=== PATIENT | female | born 1985 | race Caucasian/White ===

== ENCOUNTER 2018-08-16 15:03 | Observation (INO) ==
[2018-08-16 17:14] LABS: Basophils % 0.1 % (0.0-0.8); Hematocrit 36.2 VOL% (35.7-47.0); Hemoglobin 11.5 GM/DL (12.0-16.0); Immature Granulocytes % 0.5 %; Immature Granulocytes Absolute 0.11 #; Lymphocytes % 9.8 % (21.3-54.2); Mean Corpuscular HGB Conc 31.8 GM/DL (32-36); Mean Corpuscular Hemoglobin 30 PG (27-34); Mean Corpuscular Volume 93.1 FL (87-102); Mean Platelet Volume 10.4 FL (9.6-12.0); Monocytes # 1.9 10*3/uL (0.11-0.8); Monocytes % 9.1 % (1.7-12.7); Neutrophils # 16.4 10*3/uL (1.4-7.4); Neutrophils % 80.5 % (38.7-73.9); Platelet Count 347 T/CUMM (130-400); Red Blood Count 3.89 MC/CUMM (3.8-5.5); Red Cell Distribution Width 11.9 % (9.3-17.3); White Blood Count 20.4 T/CUMM (4-12)
[2018-08-16 17:37] LABS: Lymphocytes 7 % (20-55); Platelet Estimate Normal; Segmented Neutrophils 86 % (50-85); Total Cells Counted 100
[2018-08-16 17:39] LABS: Hypochromasia 1+; Ovalocytes Few
[2018-08-16] MEDS: HYDROmorphone 2 MG/1 ML VIAL IV PRN (19:56)
[2018-08-16] MEDS: ONDANSETRON 4 MG/2 ML VIAL IV PRN (19:57)
[2018-08-16] MEDS ORDERED: LEVOFLOXACIN INJ 500 MG in PREMIX 1 EACH IV SCH (20:00)
[2018-08-16] MEDS: DEXTROSE 5% LACTATED RINGERS 1,000 ML IV SCH (20:02)
[2018-08-16] MEDS: cefOXitin 1,000 MG in SYRINGE 1 EACH IV SCH (22:32)
[2018-08-16] MEDS: DOXYCYCLINE HYCLATE INJ 100 MG in SODIUM CHLORIDE 0.9% 100 ML IV SCH (22:39)
[2018-08-17] MEDS: HYDROmorphone 2 MG/1 ML VIAL IV PRN ×2 (03:17→15:16)
[2018-08-17] MEDS: ONDANSETRON 4 MG/2 ML VIAL IV PRN (03:17)
[2018-08-17] MEDS: cefOXitin 1,000 MG in SYRINGE 1 EACH IV SCH ×4 (04:35→22:18)
[2018-08-17 04:47] LABS: Basophils % 0.1 % (0.0-0.8); Eosinophils % 0.1 % (0.00-10.9); Hematocrit 32.8 VOL% (35.7-47.0); Hemoglobin 10.4 GM/DL (12.0-16.0); Immature Granulocytes % 0.6 %; Lymphocytes % 12.4 % (21.3-54.2); Mean Corpuscular HGB Conc 31.7 GM/DL (32-36); Mean Corpuscular Hemoglobin 29 PG (27-34); Mean Corpuscular Volume 92.7 FL (87-102); Mean Platelet Volume 10.3 FL (9.6-12.0); Monocytes # 1.5 10*3/uL (0.11-0.8); Monocytes % 9.3 % (1.7-12.7); Neutrophils # 12.4 10*3/uL (1.4-7.4); Neutrophils % 77.5 % (38.7-73.9); Platelet Count 306 T/CUMM (130-400); Red Blood Count 3.54 MC/CUMM (3.8-5.5)
[2018-08-17] MEDS: DOXYCYCLINE HYCLATE INJ 100 MG in SODIUM CHLORIDE 0.9% 100 ML IV SCH ×2 (10:01→22:26)
[2018-08-17] MEDS: DEXTROSE 5% LACTATED RINGERS 1,000 ML IV SCH ×2 (10:01→22:26)
[2018-08-17] MEDS ORDERED: oxyCODONE/ACETAMINOPHEN 5-325 MG TABLET PO PRN ×2 (22:11)
[2018-08-18] MEDS: cefOXitin 1,000 MG in SYRINGE 1 EACH IV SCH (04:14)
[2018-08-18 06:17] LABS: Basophils % 0.3 % (0.0-0.8); Eosinophils # 0.1 10*3/uL (0.0-0.87); Eosinophils % 1.1 % (0.00-10.9); Hematocrit 33.9 VOL% (35.7-47.0); Hemoglobin 10.5 GM/DL (12.0-16.0); Immature Granulocytes % 0.5 %; Immature Granulocytes Absolute 0.06 #; Lymphocytes # 2.5 10*3/uL (1.4-4.0); Lymphocytes % 22.7 % (21.3-54.2); Mean Corpuscular Hemoglobin 29 PG (27-34); Mean Corpuscular Volume 94.4 FL (87-102); Monocytes # 1.3 10*3/uL (0.11-0.8); Monocytes % 11.4 % (1.7-12.7); Neutrophils # 7.2 10*3/uL (1.4-7.4); Platelet Count 297 T/CUMM (130-400); Red Blood Count 3.59 MC/CUMM (3.8-5.5); Red Cell Distribution Width 11.9 % (9.3-17.3); White Blood Count 11.2 T/CUMM (4-12)
[2018-08-18 07:24] VITALS: BP 111/76
[2018-08-18] MEDS: DEXTROSE 5% LACTATED RINGERS 1,000 ML IV SCH (07:40)
== END 2018-08-18 10:00 | disposition home or self-care (01) ==
LOC: N.EDINP 15:03 → N.ED 15:03 → N.OB 18:00
PROVIDERS: ADMIT Obstetrics & Gynecology; ATTEND Obstetrics & Gynecology

== ENCOUNTER 2021-03-28 00:55 | Inpatient (IN) ==
[2021-03-28] MEDS ORDERED: MEPERIDINE 50 MG/1 ML VIAL IV PRN (01:06)
[2021-03-28] MEDS ORDERED: ONDANSETRON 4 MG/2 ML VIAL IV PRN ×2 (01:06→21:59)
[2021-03-28] MEDS ORDERED: BUTORPHANOL 2 MG/ML VIAL IV PRN (01:06)
[2021-03-28] MEDS ORDERED: LACTATED RINGERS 1,000 ML IV SCH ×2 (01:30→22:00)
[2021-03-28 01:49] LABS: Alanine Aminotransferase 30 U/L (13-56); Albumin 2.7 G/DL (3.4-5.0); Alkaline Phosphatase 203 U/L (45-117); Aspartate Amino Transferase 20 U/L (0-37); Bilirubin,Total < 0.39 MG/DL (0.2-1.0); Blood Urea Nitrogen 7 MG/DL (7-18); Calcium 9.2 MG/DL (8.5-10.1); Carbon Dioxide 25 MMOL/L (21-32); Estimated Glom Filtration Rate 148 ML/MIN; Glucose 90 MG/DL (74-106); Sodium 136 MMOL/L (136-145); Total Protein 7.5 G/DL (6.4-8.2)
[2021-03-28 01:55] LABS: Basophils % 0.2 % (0.0-0.8); Eosinophils # 0.1 10*3/uL (0.0-0.87); Eosinophils % 0.7 % (0.00-10.9); Hematocrit 33.9 VOL% (35.7-47.0); Hemoglobin 11.6 GM/DL (12.0-16.0); Immature Granulocytes % 1.7 %; Lymphocytes # 2.6 10*3/uL (1.4-4.0); Lymphocytes % 21.5 % (21.3-54.2); Mean Corpuscular HGB Conc 34.2 GM/DL (32-36); Mean Corpuscular Volume 91.1 FL (87-102); Mean Platelet Volume 10.8 FL (9.6-12.0); Monocytes % 7.7 % (1.7-12.7); Neutrophils % 68.2 % (38.7-73.9); Platelet Count 370 T/CUMM (130-400); Red Blood Count 3.72 MC/CUMM (3.8-5.5); Red Cell Distribution Width 12.3 % (9.3-17.3)
[2021-03-28 04:13] LABS: INR 0.9; PT Patient Result 9.8 SECS (10.5-12.0); Partial Thromboplastin Time 25.7 SECS (23.9-33.8)
[2021-03-28] MEDS ORDERED: ACETAMINOPHEN 500 MG TABLET PO PRN (13:37)
[2021-03-28] MEDS ORDERED: FAMOTIDINE 20 MG/2 ML VIAL IV ONE (18:20)
[2021-03-28] MEDS ORDERED: CITRIC ACID/SODIUM CITRATE 30 ML UDCUP PO ONE (18:20)
[2021-03-28] MEDS ORDERED: hydrOXYzine HCL 25 MG/1 ML VIAL IM PRN (18:20)
[2021-03-28] MEDS ORDERED: ePHEDrine 50 MG/ML VIAL IV PRN (18:20)
[2021-03-28] MEDS ORDERED: PROMETHAZINE 25 MG/1 ML VIAL IM ONE (18:20)
[2021-03-28] MEDS ORDERED: ONDANSETRON 4 MG/2 ML VIAL IV ONE (18:20)
[2021-03-28] MEDS ORDERED: diphenhydrAMINE 50 MG/1 ML VIAL IV PRN ×2 (18:20)
[2021-03-28] MEDS ORDERED: OXYTOCIN/LR 20 UNIT/1,000 ML BAG IV ONE ×4 (18:39→23:10)
[2021-03-28] MEDS ORDERED: PHENYLEPHRINE 1 MG/10 ML SYRINGE IV ONE (18:48)
[2021-03-28] MEDS ORDERED: ONDANSETRON 4 MG/2 ML VIAL ONE (18:48)
[2021-03-28] MEDS ORDERED: BUPIVACAINE SPINAL 0.75% 2 ML AMP SPINAL ONE (18:51)
[2021-03-28] MEDS ORDERED: ceFAZolin 2,000 MG/50 ML DUPLEX IV ONE (19:09)
[2021-03-28] MEDS ORDERED: miSOPROStoL 200 MCG TABLET ONE (20:18)
[2021-03-28] MEDS ORDERED: CARBOPROST TROMETHAMINE 250 MCG/ML AMP IM ONE (20:19)
[2021-03-28] MEDS ORDERED: METHYLERGONOVINE 0.2 MG/1 ML AMP ONE (20:19)
[2021-03-28] MEDS ORDERED: TRANEXAMIC ACID 1,000 MG/10 ML VIAL ONE (20:19)
[2021-03-28] MEDS ORDERED: METHYLERGONOVINE 0.2 MG/1 ML AMP IM ONE (21:05)
[2021-03-28] MEDS ORDERED: ePHEDrine 50 MG/ML VIAL ONE (21:10)
[2021-03-28] MEDS ORDERED: ACETAMINOPHEN INJ 1,000 MG/100 ML VIAL IV ONE (21:25)
[2021-03-28] MEDS ORDERED: KETOROLAC 30 MG/1 ML VIAL ONE (21:26)
[2021-03-28 21:30] LABS: Cord Arterial Blood HCO3 16.2 MMOL/L
[2021-03-28 21:33] LABS: Cord Venous Blood HCO3 17.3 MMOL/L; Cord Venous Blood PCO2 82.5 MMHG; Cord Venous Blood PO2 < 17
[2021-03-28] MEDS ORDERED: RHO(D) IMMUNE GLOBULIN 300 MCG SYRINGE IM ONE (21:59)
[2021-03-28] MEDS ORDERED: ACETAMINOPHEN 325 MG TABLET PO PRN (21:59)
[2021-03-28] MEDS ORDERED: MAGNESIUM HYDROXIDE SUSP 30 ML UDCUP PO PRN (21:59)
[2021-03-28] MEDS ORDERED: SIMETHICONE CHEW 80 MG TABLET PO PRN (21:59)
[2021-03-29] MEDS ORDERED: LABETALOL 200 MG TABLET PO PRN (01:05)
[2021-03-29 01:20] LABS: Bacteria,Urine Occasional /HPF (Few); Bilirubin,Urine Negative (Negative); Blood, Urine Negative (Negative); Glucose,Urine (UA) Negative (Negative); Ketones,Urine Negative (Negative); Nitrite,Urine Negative (Negative); Protein,Urine Negative; RBC,Urine 1 /HPF (0-4); Squamous Epithelial Cell,Urine Occasional /HPF (0-10); Urine Appearance CLEAR (Clear); Urine Color Straw (Yellow); Urine Specific Gravity 1.004 (1.001-1.035); Urine Urobilinogen < 2.0 EU/DL (0.2-1.0)
[2021-03-29] MEDS: ACETAMINOPHEN 500 MG TABLET PO SCH ×2 (02:17→03:20)
[2021-03-29] MEDS: KETOROLAC 30 MG/1 ML VIAL IV SCH ×2 (03:20→09:52)
[2021-03-29 05:43] LABS: Basophils % 0.1 % (0.0-0.8); Eosinophils % 0.1 % (0.00-10.9); Hematocrit 29.9 VOL% (35.7-47.0); Hemoglobin 9.7 GM/DL (12.0-16.0); Immature Granulocytes % 0.6 %; Immature Granulocytes Absolute 0.11 #; Lymphocytes # 2.4 10*3/uL (1.4-4.0); Lymphocytes % 13.6 % (21.3-54.2); Mean Corpuscular HGB Conc 32.4 GM/DL (32-36); Mean Corpuscular Volume 93.4 FL (87-102); Mean Platelet Volume 11.1 FL (9.6-12.0); Monocytes % 6.9 % (1.7-12.7); Neutrophils % 78.7 % (38.7-73.9); Platelet Count 313 T/CUMM (130-400); Red Cell Distribution Width 12.3 % (9.3-17.3); White Blood Count 17.7 T/CUMM (4-12)
[2021-03-29] MEDS: DOCUSATE SODIUM 100 MG CAPSULE PO SCH ×2 (09:55→21:23)
[2021-03-29] MEDS: MULTIVITAMIN (PRENATAL) TABLET PO SCH (09:55)
[2021-03-29 12:19] LABS: Basophils % 0.1 % (0.0-0.8); Hemoglobin 9.3 GM/DL (12.0-16.0); Immature Granulocytes % 0.5 %; Immature Granulocytes Absolute 0.11 #; Lymphocytes # 1.1 10*3/uL (1.4-4.0); Lymphocytes % 5.6 % (21.3-54.2); Mean Corpuscular HGB Conc 33.2 GM/DL (32-36); Mean Corpuscular Volume 92.1 FL (87-102); Mean Platelet Volume 10.2 FL (9.6-12.0); Neutrophils % 89.8 % (38.7-73.9); Platelet Count 266 T/CUMM (130-400); Red Blood Count 3.04 MC/CUMM (3.8-5.5); Red Cell Distribution Width 12.7 % (9.3-17.3); White Blood Count 20.1 T/CUMM (4-12)
[2021-03-29 13:39] LABS: Lymphocytes 4 % (20-55); Segmented Neutrophils 91 % (50-85); Total Cells Counted 100
[2021-03-29 13:40] LABS: Platelet Estimate Normal; Polychromasia Slight
[2021-03-29] MEDS: IBUPROFEN 800 MG TABLET PO PRN (18:44)
[2021-03-29] MEDS: oxyCODONE/ACETAMINOPHEN 5-325 MG TABLET PO PRN (18:44)
[2021-03-30] MEDS: oxyCODONE/ACETAMINOPHEN 5-325 MG TABLET PO PRN (01:20)
[2021-03-30] MEDS: IBUPROFEN 800 MG TABLET PO PRN ×2 (01:21→09:16)
[2021-03-30] MEDS: DOCUSATE SODIUM 100 MG CAPSULE PO SCH (09:05)
[2021-03-30] MEDS: MULTIVITAMIN (PRENATAL) TABLET PO SCH (09:05)
[2021-03-30 10:05] VITALS: BP 127/78
== END 2021-03-30 14:10 | disposition home or self-care (01) | DRG 788 ==
LOC: N.LD 00:55 → N.OB 03-29 01:31
PROVIDERS: ADMIT Obstetrics & Gynecology; ATTEND Obstetrics & Gynecology
PROC: LDCSECT (ICD-10-PCS; 2021-03-28 19:00)